=== PATIENT | female | born 1940 | race Caucasian/White ===

== ENCOUNTER → 2019-10-06 | Outpatient (CLI) | payer BC ==
--- NOTE | 2019-10-06 17:16 | RAD ---
CHEST PA LATERAL History: Cough Comparison: None. Findings: Frontal and lateral views of chest were obtained. The cardiomediastinal silhouette is normal. Pulmonary vasculature is normal. The lungs are clear. No pleural effusion or pneumothorax is seen. There is no acute bone abnormality. Elevation of the right hemidiaphragm noted. IMPRESSION: No acute cardiopulmonary process. Electronically signed by: Timbo Jain MD (10/06/2019 5:12 PM) [facility]
== END | disposition home or self-care (01) ==
LOC: DXRAD 14:41
PROVIDERS: ATTEND Specialist
DX: J98.6 Disorders of diaphragm (principal); J06.9 Acute upper respiratory infection, unspecified
CPT/HCPCS: 71046